=== PATIENT | female | born 1975 | race Caucasian/White ===

== ENCOUNTER 2017-05-12 11:28 | Emergency (ER) | payer OTHER ==
[2017-05-12] MEDS ORDERED: NS 1,000 ML IV ONE (12:23)
[2017-05-12] MEDS ORDERED: HYDROmorphONE/DILAUDID 1 MG/ML INJ IVP ONE (12:23)
--- NOTE | 2017-05-12 12:26 | EDPHY ---
H & P Time Seen by Provider: 05/12/17 11:57 HPI/ROS: CHIEF COMPLAINT: Abdominal pain HISTORY OF PRESENT ILLNESS: 41-year-old female presents to the emergency department complaining of severe lower abdominal discomfort. The pain began gradually about 3 and half weeks ago and she had her IUD removed 2 weeks ago which she was thinking maybe was the cause. She states that since removing the IUD she feels that her pain is a bit worse. She states especially in the last 24 hr her pain is more significant. She vomited 1 time last night and had 1 episode of diarrhea. No urinary symptoms. She feels that the pain is radiating to her back. No chest pain or difficulty breathing. No fevers or chills. No vaginal spotting. She is followed by Dr. Marlena Hooper who saw the patient just 2 days ago and had normal laboratory studies. The patient also had a pelvic exam at that time and had bilateral adnexal pain. She had an outpatient pelvic ultrasound done which revealed ovarian cyst as well as concern for possible cervical mass. She was scheduled to have an MRI of her pelvis today, however the pain became too great and she came to the emergency department for evaluation. No reported trauma. REVIEW OF SYSTEMS: Constitutional: No fever, no chills. Eyes: No double or blurry vision. ENT: No sore throat. Respiratory: No cough, no shortness of breath. Cardiac: No chest pain. Gastrointestinal: Abdominal pain as above. No vomiting or diarrhea. Genitourinary: No dysuria. Musculoskeletal: No neck or back pain. Skin: No rashes. Neurological: No headache. Past Medical/Surgical History: Anxiety Social History: Smoking Status: Never smoked Physical Exam: General Appearance: Alert, no distress. 125/88 Eyes: Pupils equal and round. Extraocular motions are all intact. ENT: Mouth: Mucous membranes moist. Respiratory: No wheezing, rhonchi, or rales, lungs are clear to auscultation. Cardiovascular: Regular rate and rhythm. Gastrointestinal: Abdomen is soft. She has tenderness with palpation in the suprapubic area as well as well as in the right lower quadrant. No rebound tenderness noted. No guarding. No CVA tenderness bilaterally. Neurological: Alert and oriented x 3, cranial nerves II through XII grossly intact Skin: Warm and dry, no rashes. Musculoskeletal: Nontender to palpate along the cervical, thoracic or lumbar spine. Neck is supple. Extremities: Full range of motion and no peripheral edema. Psychiatric: Patient is oriented X 3, there is no agitation. Constitutional: Initial Vital Signs Temperature (C) 36.9 C 05/12/17 11:29 Heart Rate 78 05/12/17 11:29 Respiratory Rate 18 05/12/17 11:29 Blood Pressure 125/88 H 05/12/17 11:29 O2 Sat (%) 98 05/12/17 11:29 O2 Delivery Mode Room Air Allergies/Adverse Reactions: Some pain med Allergy (Intermediate, Uncoded 05/12/17 11:34) increased agitation Home Medications: Medication Instructions Recorded Citalopram Hydrobromide [celeXA 10 10 mg PO DAILY 05/12/17 MG] Doxycycline Hyclate [Doxycycline] 100 mg PO BID #28 cap 05/12/17 Metronidazole 500 mg PO BID #28 tablet 05/12/17 Medical Decision Making - Diagnostics Imaging: Discussed imaging studies w/ call center support representative Radiologist ED Course/Re-evaluation: 41-year-old female presents to the emergency department with lower abdominal pelvic pain. This is been ongoing chronic problem for at least 3 and half weeks. She has seen her primary care provider multiple times for this including just a few days ago. She had a pelvic ultrasound as an outpatient done a few weeks ago which revealed multiple ovarian cysts as well as abnormality of the cervix. She was scheduled for an MRI of the pelvis with contrast as an outpatient 1 o'clock this afternoon, however the pain became too great and she came to the emergency department for evaluation. I spoke with her primary care provider, Dr. Marlena Hooper multiple times. She recommended MRI of the pelvis with contrast as she recommended. She did not recommend CT scan initially. MRI reveals abnormal cervix to a depth of 6 mm which is circumferential. It does not involve the myometrium, lymph nodes in the pelvis, there is no free fluid. The patient continued to have ongoing abdominal pain especially in her right lower quadrant. I was concerned about possible acute appendicitis. I discussed the pros and cons of CT imaging of her abdomen and pelvis including radiation exposure the patient agreed. I also spoke with the primary care provider about this and she verbalized understanding and agreed as well. CT scan of the abdomen pelvis was unremarkable. The patient has seen her primary care provider multiple times. Per her primary care provider, the patient had cervical motion tenderness and pain over the left and the right adnexa. Patient states that she is monogamous with her . We did discuss treatment with antibiotics since she just recently had an IUD that was removed in her pain became worse. The patient was treated with 250 mg of ceftriaxone IM, doxycycline and metronidazole orally. She was given the name of [facility] for referral. She understands that she will require cervical biopsy determine if this is inflammatory changes versus possible carcinoma. Patient was also given IV Toradol. She was comfortable being discharged home. I do not think surgical consult is indicated. Her laboratory studies were unremarkable. She was instructed to return if she had any change in symptoms or if she felt worse in any way. The case was discussed with Dr. Idalia Vann, supervising physician, who did not directly evaluate the patient but agrees with treatment and plan. Differential Diagnosis: Including but not limited to carcinoma, ovarian cyst, ovarian torsion, urinary tract infection, pyelonephritis, kidney stone, PID - Data Points Laboratory Results: Laboratory Results 05/12/17 11:52 05/12/17 11:52 Medications Given: Discontinued Medications Ceftriaxone Sodium (Rocephin Im Syringe) 250 mg IM EDNOW ONE PRN Reason: Protocol Stop: 05/12/17 16:50 Last Admin: 05/12/17 17:15 Dose: 250 mg Hydromorphone HCl (Dilaudid) 0.5 mg IVP EDNOW ONE Stop: 05/12/17 12:24 Last Admin: 05/12/17 12:42 Dose: 0.5 mg Hydromorphone HCl (Dilaudid) 0.5 mg IVP EDNOW ONE Stop: 05/12/17 13:28 Last Admin: 05/12/17 13:29 Dose: 0.5 mg Sodium Chloride (Ns) 1,000 mls @ 0 mls/hr IV ONCE ONE PRN Reason: Wide Open Stop: 05/12/17 12:24 Last Admin: 05/12/17 12:41 Dose: 1,000 mls Ketorolac Tromethamine (Toradol) 30 mg IVP EDNOW ONE Stop: 05/12/17 16:16 Last Admin: 05/12/17 16:31 Dose: 30 mg Departure - Departure Disposition: Home, Routine, Self-Care Clinical Impression: Abdominal pain Qualifiers: Abdominal location: lower abdomen, unspecified Qualified Code(s): R10.30 - Lower abdominal pain, unspecified Condition: Good Instructions: Pelvic Inflammatory Disease (ED), Acute Abdominal Pain (ED) Additional Instructions: Doxycycline and Metronidazole as directed for 14 days. Ibuprofen 600 mg as directed for pain. You should not need additional ibuprofen until tomorrow since your given IV Toradol. You have abnormal swelling in her cervix which will need biopsy by OBGYN. You have been referred to Dr. Jessica Rodriguez who was on-call for OBGYN. Abdominal Pain: Return to the Emergency Department immediately for increasing pain, fever, vomiting, or if not completely better in 8-12 hours. Referrals: Jessica Rodriguez MD [Medical Doctor] - 2-3 days without fail (OBGYN on-call) Prescriptions: Doxycycline Hyclate [Doxycycline] 100 mg PO BID #28 cap Metronidazole 500 mg PO BID #28 tablet
[2017-05-12] MEDS ORDERED: HYDROmorphONE/DILAUDID 2 MG/ML INJ ONE (12:38)
[2017-05-12] MEDS ORDERED: HYDROmorphONE/DILAUDID 2 MG/ML INJ IVP ONE (13:27)
[2017-05-12 13:32] VITALS: RESP 14
[2017-05-12] MEDS ORDERED: GADOBUTROL 10 ML VIAL IVP ONE (13:48)
[2017-05-12 15:16] LABS: PLATELET COUNT 298 10^3/uL (150-400)
[2017-05-12] MEDS ORDERED: IOPAMIDOL (ISOVUE-300) 100 ML BTL ONE (15:32)
[2017-05-12] MEDS ORDERED: KETOROLAC 30 MG/1 ML SDV IVP ONE (16:15)
[2017-05-12 16:37] VITALS: BP 120/67; PULSE 88; TEMP 98.2; O2SAT 99
== END 2017-05-12 17:16 | disposition home or self-care (01) ==
DX: R10.31 Right lower quadrant pain (principal)
CPT/HCPCS: 96374; A9585; J0696; J1170; J1885; Q9967

== ENCOUNTER 2017-05-14 09:04 | Emergency (ER) | payer OTHER ==
--- NOTE | 2017-05-14 09:43 | EDPHY ---
H & P Stated Complaint: rlq abd/pelvic pain hyperventilation with carpal pedal spasm.nausea Time Seen by Provider: 05/14/17 09:27 HPI/ROS: CHIEF COMPLAINT: Abdominal pain, dyspnea HISTORY OF PRESENT ILLNESS: 41-year-old female seen emergency department 2 days ago for complaints of similar, returns to the emergency department complaining of worsening suprapubic pain as well as nausea, vomiting, melanic stools, dyspnea. She is complaining of new vaginal bleeding, suprapubic discomfort. She has had intermittent episodes of nausea and vomiting. REVIEW OF SYSTEMS: A ten point review of systems was performed and is negative with the exception of the items mentioned in the HPI PAST MEDICAL & SURGICAL HISTORY: Recent diagnosis of possible pelvic inflammatory disease, possible cervical malignancy. SOCIAL HISTORY: nonsmoker PHYSICAL EXAM (Prior to examination, patient consented to physical exam, hands were washed and my usual and customary physical exam procedures followed) 1) GENERAL: Well-developed, well-nourished, alert and oriented. Appears uncomfortable, appears anxious. 2) HEAD: Normocephalic, atraumatic 3) HEENT: Pupils equal, round, reactive to light bilaterally. Sclera anicteric. Nasopharynx, oropharynx, clear, no lesions. Ears bilaterally with normal tympanic membranes. 4) NECK: Full range of motion, no meningeal signs. 5) LUNGS: Clear auscultation bilaterally, no wheezes, no rhonchi, no retractions. 6) HEART: Regular rate and rhythm, no murmur, no heave, no gallop. 7) ABDOMEN: No guarding, tender to palpation suprapubic region, negative McBurney's, negative Daniels's, negative Rovsing's, negative peritoneal sign, 8) MUSCULOSKELETAL: Moving all extremities, no focal areas of tenderness, no obvious trauma. No peripheral edema or discoloration. 9) BACK: No CVA tenderness, no midline vertebral tenderness, no fluctuance, no step-off, no obvious trauma, no visual or palpable abnormality. 10) SKIN: No rash, no petechiae. [11) rectal: (With brewery technician Sharmin at bedside): Dark brown stool on glove DIFFERENTIAL DIAGNOSIS: My differential diagnosis includes, but is not limited to, acute appendicitis, acute cholecystitis, bowel obstruction, acute pancreatitis, ovarian torsion, ectopic , pulmonary embolus, gastritis and urinary tract infection. The patient understands that this diagnosis is provisional and can never be 100% accurate. This is a partial list of diagnoses considered. These considerations are based on history, physical exam, past history and reassessment. - Personal History LMP (Females 10-55): Now Current Tetanus/Diphtheria Vaccine: Yes - Medical/Surgical History Hx Asthma: No Hx Chronic Respiratory Disease: No Hx Diabetes: No Hx Cardiac Disease: No Hx Renal Disease: No Hx Cirrhosis: No Hx Alcoholism: No Hx HIV/AIDS: No Hx Splenectomy or Spleen Trauma: No Other PMH: anxiety - Social History Smoking Status: Never smoked Constitutional: Initial Vital Signs Temperature (C) 36.5 C 05/14/17 09:15 Heart Rate 88 05/14/17 09:15 Respiratory Rate 22 H 05/14/17 09:15 Blood Pressure 119/72 05/14/17 09:15 O2 Sat (%) 100 05/14/17 09:15 O2 Delivery Mode Room Air Allergies/Adverse Reactions: Some pain med Allergy (Intermediate, Uncoded 05/14/17 09:14) increased agitation Home Medications: Medication Instructions Recorded Citalopram Hydrobromide [celeXA 10 10 mg PO DAILY 05/12/17 MG] Doxycycline Hyclate [Doxycycline] 100 mg PO BID #28 cap 05/12/17 Metronidazole 500 mg PO BID #28 tablet 05/12/17 Hydrocodone/APAP 5/325 [[place] 1 tab PO Q6 PRN #15 tab 05/14/17 5/325 (RX)] Ondansetron Odt [Zofran Odt] 4 mg PO Q4PRN PRN #10 tab 05/14/17 Medical Decision Making - Diagnostics Imaging Results: Imaging Impressions Chest X-Ray 05/14/17 10:17 IMPRESSION: Normal chest x-ray. Pelvic/Renal Ultrasound 05/14/17 10:33 Impression: 1. Complex lesions of the cervix which are nonspecific and neoplasm cannot be excluded. Images reviewed myself Imaging: Discussed imaging studies w/ physically impaired teacher Radiologist ED Course/Re-evaluation: 9:45 a.m.: I reviewed the patient's old medical records and imaging studies from Monday (today is Monday). At that time she was noted to have MRI findings possibly consistent with cervical carcinoma. Plan the emergency department today will be laboratory studies in addition to a D-dimer as she is experiencing dyspnea. 12:16 p.m.: Re-evaluation. Discussed with the patient her ultrasound results showing normal ovarian flow, collapsing left ovarian follicle, continued cervical lesion. Today is Monday. She is planning on contacting OBGYN tomorrow to establish follow-up. Malignancy is not ruled out. Her pain is controlled in the ER. Her nausea is controlled in the ER. Plan will be discharge with analgesia, antiemetic. Patient feels comfortable being discharged. 1:14 p.m.: Re-evaluation after multiple dosages of Zofran. She is complaining of continued pain, continued nausea. 2:10 p.m.: Re-evaluation . IV Phenergan was ordered however patient declined this as she ultimately stated she was feeling improvement spontaneously.. Feels she can go home. Requests prescription for Zofran. Today is Monday. She already has OBGYN follow-up referral information. She is plan calling OBGYN tomorrow to follow up regarding the inflammation at the cervix. At this time I do not think that repeat CT scan abdomen is indicated. Doubt acute appendicitis. Doubt acute surgical abdominal pathology. Usual customary abdominal precautions instructions provided. Care of patient under supervision of secondary supervising physician Dr Narvaez with whom I discussed case. - Data Points Laboratory Results: Laboratory Results 05/14/17 09:46 05/14/17 09:46 05/14/17 05/14/17 05/14/17 12:20 10:48 09:46 WBC RBC Hgb Hct MCV MCH MCHC RDW Plt Count MPV Neut % (Auto) Lymph % (Auto) [place] % (Auto) Eos % (Auto) Baso % (Auto) Nucleat RBC Rel Count Absolute Neuts (auto) Absolute Lymphs (auto) Absolute Monos (auto) Absolute Eos (auto) Absolute Basos (auto) Absolute Nucleated RBC Immature Gran % Immature Gran # D-Dimer 0.27 ug/mLFEU ug/mLFEU (0.00-0.50) Sodium Potassium Chloride Carbon Dioxide Anion Gap BUN Creatinine Estimated GFR Glucose Calcium Total Bilirubin Conjugated Bilirubin Unconjugated Bilirubin AST ALT Alkaline Phosphatase Total Protein Albumin Lipase Beta HCG, Qual Urine Color YELLOW Urine Appearance HAZY Urine pH 7.0 (5.0-7.5) Ur Specific [place] 1.015 (1.002-1.030) Urine Protein NEGATIVE (NEGATIVE) Urine Ketones NEGATIVE (NEGATIVE) Urine Blood 3+ H (NEGATIVE) Urine Nitrate NEGATIVE (NEGATIVE) Urine Bilirubin NEGATIVE (NEGATIVE) Urine Urobilinogen NEGATIVE EU EU (0.2-1.0) Ur Leukocyte Esterase NEGATIVE (NEGATIVE) Urine RBC 50-182 /hpf H /hpf (0-3) Urine WBC 1-3 /hpf /hpf (0-3) Ur Epithelial Cells 1+ /lpf /lpf (NONE-1+) Urine Mucus TRACE /lpf /lpf (NONE-1+) Urine Glucose NEGATIVE (NEGATIVE) Stool Occult Bld Scrn NEGATIVE (NEGATIVE) 05/14/17 05/14/17 05/14/17 09:46 09:46 09:46 WBC 10.64 10^3/uL H 10^3/uL (3.80-9.50) RBC 4.55 10^6/uL 10^6/uL (4.18-5.33) Hgb 13.9 g/dL g/dL (12.6-16.3) Hct 38.3 % % (38.0-47.0) MCV 84.2 fL fL (81.5-99.8) MCH 30.5 pg pg (27.9-34.1) MCHC 36.3 g/dL g/dL (32.4-36.7) RDW 12.3 % % (11.5-15.2) Plt Count 215 10^3/uL D 10^3/uL (150-400) MPV 8.1 fL L fL (8.7-11.7) Neut % (Auto) 85.4 % H % (39.3-74.2) Lymph % (Auto) 7.1 % L % (15.0-45.0) [place] % (Auto) 5.8 % % (4.5-13.0) Eos % (Auto) 1.0 % % (0.6-7.6) Baso % (Auto) 0.3 % % (0.3-1.7) Nucleat RBC Rel Count 0.0 % % (0.0-0.2) Absolute Neuts (auto) 9.08 10^3/uL H 10^3/uL (1.70-6.50) Absolute Lymphs (auto) 0.76 10^3/uL L 10^3/uL (1.00-3.00) Absolute Monos (auto) 0.62 10^3/uL 10^3/uL (0.30-0.80) Absolute Eos (auto) 0.11 10^3/uL 10^3/uL (0.03-0.40) Absolute Basos (auto) 0.03 10^3/uL 10^3/uL (0.02-0.10) Absolute Nucleated RBC 0.00 10^3/uL 10^3/uL (0-0.01) Immature Gran % 0.4 % % (0.0-1.1) Immature Gran # 0.04 10^3/uL 10^3/uL (0.00-0.10) D-Dimer Sodium 145 mEq/L mEq/L (135-145) Potassium 3.5 mEq/L mEq/L (3.5-5.2) Chloride 110 mEq/L mEq/L (97-110) Carbon Dioxide 22 mEq/l mEq/l (22-31) Anion Gap 13 mEq/L mEq/L (8-16) BUN 12 mg/dL mg/dL (7-23) Creatinine 0.6 mg/dL mg/dL (0.6-1.0) Estimated GFR > 60 Glucose 85 mg/dL mg/dL (70-100) Calcium 9.3 mg/dL mg/dL (8.5-10.4) Total Bilirubin 0.9 mg/dL mg/dL (0.1-1.4) Conjugated Bilirubin 0.3 mg/dL mg/dL (0.0-0.5) Unconjugated Bilirubin 0.6 mg/dL mg/dL (0.0-1.1) AST 27 IU/L IU/L (14-46) ALT 37 IU/L IU/L (9-52) Alkaline Phosphatase 51 IU/L IU/L (38-126) Total Protein 6.6 g/dL g/dL (6.3-8.2) Albumin 4.3 g/dL g/dL (3.5-5.0) Lipase 63 IU/L IU/L (23-300) Beta HCG, Qual NEGATIVE Urine Color Urine Appearance Urine pH Ur Specific [place] Urine Protein Urine Ketones Urine Blood Urine Nitrate Urine Bilirubin Urine Urobilinogen Ur Leukocyte Esterase Urine RBC Urine WBC Ur Epithelial Cells Urine Mucus Urine Glucose Stool Occult Bld Scrn Medications Given: Discontinued Medications Hydromorphone HCl (Dilaudid) 1 mg IVP EDNOW ONE Stop: 05/14/17 09:58 Last Admin: 05/14/17 10:05 Dose: 1 mg Ondansetron HCl (Zofran) 4 mg IVP EDNOW ONE Stop: 05/14/17 11:55 Last Admin: 05/14/17 12:18 Dose: 4 mg Promethazine HCl (Phenergan) 25 mg IVP EDNOW ONE Stop: 05/14/17 13:15 Last Admin: 05/14/17 14:02 Dose: Not Given Departure - Departure Disposition: Home, Routine, Self-Care Clinical Impression: Abdominal pain Qualifiers: Abdominal location: lower abdomen, unspecified Qualified Code(s): R10.30 - Lower abdominal pain, unspecified Condition: Good Instructions: Acute Abdominal Pain (ED) Additional Instructions: Seek immediate medical attention if you develop new or worsening symptoms, if you develop fevers, chills, inability to tolerate oral intake or any other symptoms that concerns you. Referrals: GONZALEZ ZACARIAS [Primary Care Provider] - 1 day, if not improved Prescriptions: Hydrocodone/APAP 5/325 [[place] 5/325 (RX)] 1 tab PO Q6 PRN #15 tab PRN Reason: Pain, Severe Ondansetron Odt [Zofran Odt] 4 mg PO Q4PRN PRN #10 tab PRN Reason: Nausea
[2017-05-14 09:53] LABS: PLATELET COUNT 215 10^3/uL (150-400)
[2017-05-14] MEDS ORDERED: HYDROmorphONE/DILAUDID 1 MG/ML INJ IVP ONE (09:57)
[2017-05-14] MEDS ORDERED: HYDROmorphONE/DILAUDID 2 MG/ML INJ ONE (10:02)
[2017-05-14] MEDS ORDERED: ONDANSETRON 4 MG/2 ML VIAL IVP ONE (11:54)
[2017-05-14] MEDS ORDERED: PROMETHAZINE HCL 25 MG/ML INJ IVP ONE (13:14)
[2017-05-14 13:57] VITALS: BP 102/76; PULSE 67; RESP 18; O2SAT 98
[2017-05-14 14:28] VITALS: TEMP 98.1
== END 2017-05-14 14:28 | disposition home or self-care (01) ==
DX: R10.30 Lower abdominal pain, unspecified (principal)
CPT/HCPCS: 96374; J1170; J2405; J2550